=== PATIENT | female | born 1985 | race Caucasian/White ===

== ENCOUNTER → 2018-04-08 | Outpatient (REF) | payer BC | LOC: M LAB REF 18:11 | DX: E04.1 Nontoxic single thyroid nodule (principal) | CPT/HCPCS: 88173 ==

== ENCOUNTER → 2023-11-25 | Outpatient (REF) | payer BC | LOC: M SFHCDERM 12:51 | PROVIDERS: ATTEND Physician Assistant | DX: D23.9 Other benign neoplasm of skin, unspecified (principal) ==